=== PATIENT | male | born 1970 | race African-American/Black ===

== ENCOUNTER 2019-10-21 09:34 | Emergency (ER) | payer OTHER ==
[~2019-10-21] VITALS: Ht 167.6 cm; Wt 79.0 kg
[2019-10-21] MEDS ORDERED: SODIUM CHLORIDE 0.9% 1,000 ML IV ONE ×2 (11:00)
[2019-10-21] MEDS ORDERED: MORPHINE SULFATE 4 MG/ML CPJ (NOT FOR IM USE) IV STA (11:00)
[2019-10-21 11:30] LABS: CHLORIDE 107 mEq/L (98-107)
[2019-10-21 11:31] LABS: EOSINOPHILS % 0.7 % (0.0-5.0); HEMATOCRIT. 41.9 % (42.0-52.0); HEMOGLOBIN. 14.7 g/dL (14.0-18.0); LYMPHOCYTES % 30.3 % (20.0-50.0); MEAN CORPUSCULAR HEMOGLOBIN 28.9 pg (28.0-32.0); MEAN CORPUSCULAR VOLUME 82.6 fL (80.0-94.0); MEAN PLATELET VOLUME 9.9 fl (7.4-10.4); MONOCYTES % 7.9 % (2.0-8.0); NEUTROPHILS % 60.1 % (40.0-76.0); PLATELET 238 x1000/uL (130-400); RED BLOOD CELL COUNT 5.08 mill/uL (4.7-6.1); RED CELL DISTRIBUTION WIDTH 13.1 % (11.6-14.6)
[2019-10-21 11:35] LABS: C REACTIVE PROTEIN QUANT 7.4 mg/L (0.0-3.0); PROTHROMBIN TIME 10.6 sec (9.6-11.0)
[2019-10-21 12:14] LABS: COLOR URINE YELLOW (YELLOW); KETONES URINE TRACE (NEGATIVE); LEUKOCYTE ESTERASE URINE 2+ (NEGATIVE); NITRITE URINE NEGATIVE (NEGATIVE); OCCULT BLOOD URINE NEGATIVE (NEGATIVE); PROTEIN URINE TRACE (NEGATIVE); SPECIFIC GRAVITY URINE 1.027 (1.005-1.030)
[2019-10-21 12:16] LABS: CLARITY URINE SL HAZY (CLEAR)
[2019-10-21] MEDS ORDERED: IOHEXOL-300 100 ML BOTTLE ONE (14:46)
[2019-10-21] MEDS ORDERED: KETOROLAC 30MG/ML VIAL IV ONE (16:00)
[2019-10-21 16:40] VITALS: BP 169/99
== END 2019-10-21 16:43 | disposition home or self-care (01) ==
LOC: ER 09:34
DX: N48.1 Balanitis (principal); N39.0 Urinary tract infection, site not specified
CPT/HCPCS: 36415; 72193; 80053; 81003; 83605; 85025; 85610; 86140; 87040; 96374; 96375; 99284; J1885; J2270; J7030; Q9967